=== PATIENT | female | born 1935 | race Caucasian/White ===

== ENCOUNTER 2019-07-13 13:15 | Inpatient (IN) ==
[2019-07-13 14:18] LABS: Bilirubin,Urine Negative (Negative); Blood,Urine Negative (Negative); Clarity,Urine Clear (Clear); Color,Urine Yellow (Yellow); Glucose,Urine (UA) Normal (Normal); Ketones,Urine Negative (Negative); Leukocyte Esterase,Urine Negative (Negative); Nitrite,Urine Negative (Negative); PH,Urine 7.5 pH Units (5.0-8.0); Protein,Urine Negative (Neg-Trace); Urobilinogen,Urine Normal (Normal)
[2019-07-13 14:52] LABS: Basophils % 0.4 %; Eosinophils # 0.1 K/mcL (0.0-0.6); Eosinophils % 1.1 %; Hematocrit 43.1 % (35.3-44.9); Hemoglobin 14.6 g/dL (11.5-15.4); Immature Granulocytes % 0.2 % (0-4); Lymphocytes # 1.4 K/mcL (0.6-4.6); Lymphocytes % 29.6 %; Mean Corpuscular HGB Conc 33.9 g/dL (31.6-35.5); Mean Corpuscular Hemoglobin 30.4 pg (28.0-33.3); Mean Corpuscular Volume 89.8 fL (83.0-100.0); Mean Platelet Volume 9.3 fL (9.4-12.4); Monocytes # 0.4 K/mcL (0.0-1.3); Neutrophils # 2.8 K/mcL (1.6-8.9); Platelet Count 214 K/mcL (140-400); Red Cell Distribution Width 12.4 % (11.5-14.5); Segmented Neutrophils % 60.7 %; White Blood Count 4.6 K/mcL (4.3-11.1)
[2019-07-13 15:13] LABS: Alanine Aminotransferase 17 Units/L (7-52); Albumin 3.5 g/dL (3.5-5.7); Alkaline Phosphatase 106 Units/L (34-104); Aspartate Amino Transferase 20 Units/L (13-39); BUN/Creatinine Ratio 19 (6-26); Bilirubin,Total 0.6 mg/dL (0.3-1.0); Blood Urea Nitrogen 16 mg/dL (8-23); Calcium 8.9 mg/dL (8.6-10.3); Carbon Dioxide 31 mEq/L (23-29); Chloride 102 mEq/L (98-107); Creatine Kinase 37 Units/L (30-223); Globulin 3.6 g/dL (2.4-3.5); Glucose 92 mg/dL (70-105); Osmolality,Calculated 287 (280-300); Potassium 3.7 mEq/L (3.5-5.1); Sodium 138 mEq/L (136-145); Total Protein 7.1 g/dL (6.4-8.9); Troponin I < 0.03 ng/mL (< 0.04); eGFR For African Americans > 60 (> 60); eGFR For Non-African Americans > 60 (> 60)
[2019-07-13] MEDS ORDERED: Lisinopril 20 MG TABLET PO STA (15:40)
[2019-07-13] MEDS ORDERED: Naloxone 0.4 MG/ML INJ IVP PRN (16:58)
[2019-07-13] MEDS ORDERED: Melatonin 3 MG TABLET PO PRN (17:04)
[2019-07-14 04:51] LABS: Hematocrit 41.8 % (35.3-44.9); Hemoglobin 13.7 g/dL (11.5-15.4); Mean Corpuscular HGB Conc 32.8 g/dL (31.6-35.5); Mean Corpuscular Hemoglobin 30.6 pg (28.0-33.3); Mean Corpuscular Volume 93.3 fL (83.0-100.0); Mean Platelet Volume 9.4 fL (9.4-12.4); Platelet Count 195 K/mcL (140-400); Red Blood Count 4.48 M/mcL (3.82-4.97); Red Cell Distribution Width 12.2 % (11.5-14.5); White Blood Count 4.8 K/mcL (4.3-11.1)
[2019-07-14 05:07] LABS: BUN/Creatinine Ratio 18 (6-26); Blood Urea Nitrogen 15 mg/dL (8-23); Calcium 8.5 mg/dL (8.6-10.3); Carbon Dioxide 29 mEq/L (23-29); Chloride 106 mEq/L (98-107); Glucose 90 mg/dL (70-105); Osmolality,Calculated 274 (280-300); Potassium 3.4 mEq/L (3.5-5.1); Sodium 132 mEq/L (136-145); eGFR For African Americans > 60 (> 60); eGFR For Non-African Americans > 60 (> 60)
[2019-07-14] MEDS: Multivit/Ca/Min/Fe/FA 1 TAB TABLET PO SCH (08:01)
[2019-07-14] MEDS: Lisinopril 20 MG TABLET PO SCH (08:01)
[2019-07-14] MEDS: Aspirin Enteric Coated 81 MG Tablet PO SCH (08:01)
[2019-07-14] MEDS: FLUoxetine 20 MG CAPSULE PO SCH (08:02)
[2019-07-14 15:51] LABS: Thyroid Stimulating Hormone 0.088 mcIU/mL (0.340-5.600)
[2019-07-15 05:19] LABS: BUN/Creatinine Ratio 21 (6-26); Blood Urea Nitrogen 19 mg/dL (8-23); Calcium 8.6 mg/dL (8.6-10.3); Carbon Dioxide 29 mEq/L (23-29); Chloride 101 mEq/L (98-107); Glucose 112 mg/dL (70-105); Osmolality,Calculated 285 (280-300); Potassium 3.2 mEq/L (3.5-5.1); Sodium 136 mEq/L (136-145); eGFR For African Americans > 60 (> 60); eGFR For Non-African Americans 60 (> 60)
[2019-07-15 05:33] LABS: Triiodothyronine (T3) Free 2.81 pg/mL (2.50-3.90)
[2019-07-15] MEDS: Aspirin Enteric Coated 81 MG Tablet PO SCH (10:00)
[2019-07-15] MEDS: FLUoxetine 20 MG CAPSULE PO SCH (10:00)
[2019-07-15] MEDS: Multivit/Ca/Min/Fe/FA 1 TAB TABLET PO SCH (10:00)
[2019-07-15] MEDS: Lisinopril 20 MG TABLET PO SCH (10:00)
[2019-07-16 05:17] LABS: BUN/Creatinine Ratio 22 (6-26); Blood Urea Nitrogen 21 mg/dL (8-23); Calcium 8.4 mg/dL (8.6-10.3); Carbon Dioxide 28 mEq/L (23-29); Chloride 104 mEq/L (98-107); Glucose 102 mg/dL (70-105); Osmolality,Calculated 289 (280-300); Potassium 3.8 mEq/L (3.5-5.1); Sodium 138 mEq/L (136-145); eGFR For African Americans > 60 (> 60); eGFR For Non-African Americans 56 (> 60)
[2019-07-16] MEDS: Lisinopril 20 MG TABLET PO SCH (08:14)
[2019-07-16] MEDS: FLUoxetine 20 MG CAPSULE PO SCH (08:14)
[2019-07-16] MEDS: Multivit/Ca/Min/Fe/FA 1 TAB TABLET PO SCH (08:15)
[2019-07-16] MEDS: Aspirin Enteric Coated 81 MG Tablet PO SCH (08:15)
[2019-07-17 06:45] LABS: BUN/Creatinine Ratio 22 (6-26); Blood Urea Nitrogen 23 mg/dL (8-23); Calcium 8.4 mg/dL (8.6-10.3); Carbon Dioxide 30 mEq/L (23-29); Chloride 103 mEq/L (98-107); Glucose 98 mg/dL (70-105); Osmolality,Calculated 288 (280-300); Potassium 3.5 mEq/L (3.5-5.1); Sodium 137 mEq/L (136-145); eGFR For African Americans > 60 (> 60); eGFR For Non-African Americans 50 (> 60)
[2019-07-17] MEDS: Multivit/Ca/Min/Fe/FA 1 TAB TABLET PO SCH (12:59)
[2019-07-17] MEDS: Aspirin Enteric Coated 81 MG Tablet PO SCH (12:59)
[2019-07-17] MEDS: FLUoxetine 20 MG CAPSULE PO SCH (12:59)
[2019-07-17] MEDS: Lisinopril 20 MG TABLET PO SCH (12:59)
[2019-07-18] MEDS: Aspirin Enteric Coated 81 MG Tablet PO SCH (09:38)
[2019-07-18] MEDS: Lisinopril 20 MG TABLET PO SCH (09:38)
[2019-07-18] MEDS: Multivit/Ca/Min/Fe/FA 1 TAB TABLET PO SCH (09:38)
[2019-07-18] MEDS: FLUoxetine 20 MG CAPSULE PO SCH (09:38)
[2019-07-18 12:51] VITALS: BP 147/85
== END 2019-07-18 13:53 | disposition home or self-care (01) | DRG 310 ==
LOC: EMEROOARM 13:15 → 3ANU 13:15 → SUATTDRO 16:05 → 3ANU 17:23 → SUATTDRO 07-15 13:01
PROVIDERS: ADMIT Family Medicine; ATTEND Internal Medicine

== ENCOUNTER 2021-02-26 13:34 | Inpatient (IN) ==
[2021-02-26] MEDS ORDERED: 0.9 % Sodium Chloride 500 ML IVC ONE (13:59)
[2021-02-26 14:18] LABS: Amorphous Sediment,Urine Few per hpf (None-Few); Bacteria,Urine Few per hpf (None-Few); Bilirubin,Urine Negative (Negative); Blood,Urine Moderate (Negative); Clarity,Urine Ex.Turbid (Clear); Color,Urine Yellow (Yellow); Glucose,Urine (UA) Normal (Normal); Ketones,Urine Negative (Negative); Leukocyte Esterase,Urine Large (Negative); Mucus,Urine Moderate per lpf (None-Few); Nitrite,Urine Negative (Negative); Protein,Urine 100 mg/dL (Neg-Trace); RBC,Urine 50-100 per hpf (0-3); Specific Gravity,Urine 1.016 (1.010-1.025); Squamous Epithelial Cell,Urine Moderate per hpf (None-Few); WBC,Urine TNTC per hpf (0-3)
[2021-02-26 14:46] LABS: Basophils % 0.2 %; Hematocrit 38.3 % (35.3-44.9); Hemoglobin 12.4 g/dL (11.5-15.4); Immature Granulocytes % 0.5 % (0-4); Lymphocytes # 0.7 K/mcL (0.6-4.6); Mean Corpuscular HGB Conc 32.4 g/dL (31.6-35.5); Mean Corpuscular Volume 92.5 fL (83.0-100.0); Mean Platelet Volume 9.1 fL (9.4-12.4); Monocytes # 0.8 K/mcL (0.0-1.3); Monocytes % 14.1 %; Platelet Count 189 K/mcL (140-400); Red Blood Count 4.14 M/mcL (3.82-4.97); Red Cell Distribution Width 12.7 % (11.5-14.5); Segmented Neutrophils % 73.2 %; White Blood Count 5.5 K/mcL (4.3-11.1)
[2021-02-26] MEDS ORDERED: cefTRIAXone 1,000 MG in Water for inj. (sterile) 10 ML IVP ONE (15:03)
[2021-02-26 15:09] LABS: BUN/Creatinine Ratio 18 (6-26); Blood Urea Nitrogen 23 mg/dL (8-23); Calcium 8.5 mg/dL (8.6-10.3); Carbon Dioxide 29 mEq/L (23-29); Chloride 101 mEq/L (98-107); Glucose 157 mg/dL (70-105); Osmolality,Calculated 291 (280-300); Potassium 3.2 mEq/L (3.5-5.1); Sodium 137 mEq/L (136-145); Troponin I < 0.03 ng/mL (< 0.04); eGFR For African Americans 49 (> 60); eGFR For Non-African Americans 40 (> 60)
[2021-02-26] MEDS ORDERED: Potassium Effervescent 25 MEQ TABLET.EFF PO ONE (15:30)
[2021-02-26] MEDS ORDERED: Mag Hydrox/Al Hydrox/Simeth 30 ML UDC PO PRN (16:18)
[2021-02-26] MEDS ORDERED: Ondansetron ODT 4 MG TAB.RAPDIS SL PRN (16:18)
[2021-02-26] MEDS ORDERED: MOM Conc 10 ML UD.LIQ PO PRN (16:18)
[2021-02-26] MEDS ORDERED: Naloxone 0.4 MG/ML INJ IVP PRN (16:18)
[2021-02-26] MEDS ORDERED: Melatonin 3 MG TABLET PO PRN (16:18)
[2021-02-26] MEDS ORDERED: 0.9 % Sodium Chloride 1,000 ML IVC SCH (16:30)
[2021-02-27 08:24] LABS: BUN/Creatinine Ratio 21 (6-26); Blood Urea Nitrogen 19 mg/dL (8-23); Calcium 8.1 mg/dL (8.6-10.3); Carbon Dioxide 31 mEq/L (23-29); Chloride 104 mEq/L (98-107); Glucose 109 mg/dL (70-105); Osmolality,Calculated 289 (280-300); Potassium 3.5 mEq/L (3.5-5.1); Sodium 138 mEq/L (136-145); eGFR For African Americans > 60 (> 60); eGFR For Non-African Americans > 60 (> 60)
[2021-02-27] MEDS: FLUoxetine 20 MG CAPSULE PO SCH (09:09)
[2021-02-27] MEDS: lisinopriL 10 MG TABLET PO SCH (09:09)
[2021-02-27] MEDS: Aspirin Enteric Coated 81 MG Tablet PO SCH (09:09)
[2021-02-27] MEDS: cefTRIAXone 1,000 MG in 0.9 % Sodium Chloride Mini Bag 100 ML IVPB SCH (09:10)
[2021-02-28] MEDS ORDERED: *HR* Metoprolol 5 MG/5 ML VIAL IVP ONE
[2021-02-28 05:36] LABS: Basophils % 0.3 %; Hematocrit 36.1 % (35.3-44.9); Hemoglobin 11.9 g/dL (11.5-15.4); Immature Granulocytes % 0.3 % (0-4); Lymphocytes # 1.5 K/mcL (0.6-4.6); Lymphocytes % 38.8 %; Mean Corpuscular Hemoglobin 30.6 pg (28.0-33.3); Mean Corpuscular Volume 92.8 fL (83.0-100.0); Mean Platelet Volume 9.4 fL (9.4-12.4); Monocytes # 0.5 K/mcL (0.0-1.3); Monocytes % 12.1 %; Neutrophils # 1.9 K/mcL (1.6-8.9); Platelet Count 169 K/mcL (140-400); Red Blood Count 3.89 M/mcL (3.82-4.97); Red Cell Distribution Width 12.5 % (11.5-14.5); Segmented Neutrophils % 47.5 %
[2021-02-28 05:55] LABS: BUN/Creatinine Ratio 23 (6-26); Blood Urea Nitrogen 19 mg/dL (8-23); Calcium 8.3 mg/dL (8.6-10.3); Carbon Dioxide 29 mEq/L (23-29); Chloride 104 mEq/L (98-107); Glucose 91 mg/dL (70-105); Osmolality,Calculated 288 (280-300); Potassium 3.4 mEq/L (3.5-5.1); Sodium 138 mEq/L (136-145); eGFR For African Americans > 60 (> 60); eGFR For Non-African Americans > 60 (> 60)
[2021-02-28] MEDS: cefTRIAXone 1,000 MG in 0.9 % Sodium Chloride Mini Bag 100 ML IVPB SCH (08:18)
[2021-02-28] MEDS: Aspirin Enteric Coated 81 MG Tablet PO SCH (08:18)
[2021-02-28] MEDS: FLUoxetine 20 MG CAPSULE PO SCH (08:18)
[2021-02-28] MEDS: lisinopriL 10 MG TABLET PO SCH (08:18)
[2021-03-01] MEDS ORDERED: *HR* Metoprolol 5 MG/5 ML VIAL IVP ONE (00:15)
[2021-03-01 03:01] LABS: BUN/Creatinine Ratio 17 (6-26); Blood Urea Nitrogen 13 mg/dL (8-23); Calcium 8.4 mg/dL (8.6-10.3); Carbon Dioxide 30 mEq/L (23-29); Chloride 103 mEq/L (98-107); Glucose 85 mg/dL (70-105); Osmolality,Calculated 287 (280-300); Potassium 3.9 mEq/L (3.5-5.1); Sodium 139 mEq/L (136-145); eGFR For African Americans > 60 (> 60); eGFR For Non-African Americans > 60 (> 60)
[2021-03-01] MEDS: cefTRIAXone 1,000 MG in 0.9 % Sodium Chloride Mini Bag 100 ML IVPB SCH (08:32)
[2021-03-01] MEDS: FLUoxetine 20 MG CAPSULE PO SCH (08:33)
[2021-03-01] MEDS: Aspirin Enteric Coated 81 MG Tablet PO SCH (08:34)
[2021-03-01] MEDS: lisinopriL 10 MG TABLET PO SCH (08:34)
[2021-03-02] MEDS: Aspirin Enteric Coated 81 MG Tablet PO SCH (09:38)
[2021-03-02] MEDS: lisinopriL 10 MG TABLET PO SCH (09:38)
[2021-03-02] MEDS: FLUoxetine 20 MG CAPSULE PO SCH (09:38)
[2021-03-02] MEDS: cefTRIAXone 1,000 MG in 0.9 % Sodium Chloride Mini Bag 100 ML IVPB SCH (09:38)
[2021-03-02 11:50] VITALS: BP 143/77
== END 2021-03-02 15:02 | disposition home health service (06) | DRG 690 ==
LOC: 3BNU 13:34 → EMEROOARM 13:34 → SUATTDRO 16:33 → 3BNU 17:15 → SUATTDRO 02-27 10:25
PROVIDERS: ADMIT Internal Medicine; ATTEND Registered Nurse